=== PATIENT | female | born 1980 | race Caucasian/White ===

== ENCOUNTER 2020-08-01 14:45 | Emergency (ER) | payer OTHER, SELFPAY ==
[2020-08-01 14:50] VITALS: BP 99/72; PULSE 103; RESP 16; TEMP 36.9; O2SAT 100
--- NOTE | 2020-08-01 14:54 | ED.GENADULT ---
HPI - General Adult General Stated complaint: thinks she has staph Time Seen by Provider: 08/01/20 14:54 Source: patient Mode of arrival: ambulatory Limitations: no limitations History of Present Illness HPI narrative: 38-year-old female patient presents to the [facility] with complaints of a wound to her right groin for the past 2 days. Patient states she did pop it yesterday and states that she did have some discharge and was continuing to drain this morning. Patient states no active drainage at this time. Denies any fevers but states she has had some chills and some nausea recently as well. Patient does shave the groin area. Patient denies any that she is aware of. Related Data Home Medications Medication Instructions Recorded Confirmed divalproex 500 mg PO DAILY 09/19/19 08/01/20 medroxyprogesterone See Rx Instructions .ROUTE .COMPLEX 09/19/19 08/01/20 oxcarbazepine 300 mg PO DAILY 09/19/19 08/01/20 tizanidine 4 mg PO DAILY 09/19/19 08/01/20 Allergies Allergy/AdvReac Type Severity Reaction Status Date / Time carisoprodol Allergy Mild HIVES Verified 08/01/20 15:03 eszopiclone Allergy Unknown HEART Verified 08/01/20 15:03 RACING paliperidone Allergy Unknown HEART Verified 08/01/20 15:03 ISSUES pregabalin Allergy Unknown TONGUE Verified 08/01/20 15:03 SWELLING amitriptyline AdvReac Unknown NIGHTMARES Verified 08/01/20 15:03 nitrofurantoin AdvReac Unknown NAUSEA, Verified 08/01/20 15:03 INCOHERENT Review of Systems Review of Systems: Narrative: CONSTITUTIONAL: Denies fever, chills, or sweats. EYES: Denies visual changes, redness, or discharge. ENT: Denies rhinorrhea, congestion, sore throat, or otalgia. CARDIOVASCULAR: Denies chest pain, palpitations, or edema. RESPIRATORY: Denies cough or dyspnea. GASTROINTESTINAL: Denies abdominal pain, nausea, vomiting, or diarrhea. GENITOURINARY: Denies dysuria or hematuria. SKIN: Denies rash or itching. Positive wound to the right groin x2 to 3 days MUSCULOSKELETAL: Denies back pain, joint pain, or myalgia. NEUROLOGIC: Denies headache, numbness, or weakness. PSYCHIATRIC: Denies anxiety or depression. [facility] Past Medical History Medical History Anxiety Arthritis Back injury Bipolar disorder DDD (degenerative disc disease) Depression Fibromyalgia GERD (gastroesophageal reflux disease) Hepatitis C Kidney stone PTSD (post-traumatic stress disorder) Schizophrenia Seasonal allergies Seizures Tinnitus UTI (urinary tract infection) Wears glasses Surgical History Surgical History H/O carpal tunnel repair H/O dilation and curettage Social History Social History Tobacco type: e-cigarettes/vaping Alcohol intake: never Comments At the time of my signature I agree with nursing past medical history, surgical, social, and family history. There is no relevant family history pertinent to the presenting complaint. Exam Narrative: Exam Narrative: GENERAL: Well-appearing, well-nourished, and in no acute distress. HEAD: Normocephalic, atraumatic. EYES: PERRLA and EOMI. ENT: Nares clear, no rhinorrhea or epistaxis. Mucous membranes moist. NECK: Supple. No lymphadenopathy CHEST: Clear to auscultation. No respiratory distress. HEART: Regular rate and rhythm. No murmur heard. Normal peripheral pulses. ABDOMEN: Soft, nontender, nondistended, normal active bowel sounds. EXTREMITIES: Normal range of motion. No edema. SKIN: Warm, dry, no rash. Patient has approximately 1 cm x 1 cm raised infected ingrown hair noted to the right groin area. There is some redness, no active drainage. No warmth present. NEURO: No focal deficits. Alert and oriented x3. Course Vital Signs Vital signs: Vital Signs Temperature 36.9 C 08/01/20 14:50 Pulse Rate 103 H 08/01/20 14:50 Respiratory Rate 1
== END 2020-08-01 15:15 | disposition home or self-care (01) ==
PROVIDERS: Emergency Provider Nurse Practitioner Family
DX: S31.103A Unspecified open wound of abdominal wall, right lower quadrant without penetration into peritoneal cavity, initial encounter (principal); X58.XXXA Exposure to other specified factors, initial encounter; F17.200 Nicotine dependence, unspecified, uncomplicated; M19.90 Unspecified osteoarthritis, unspecified site; M79.7 Fibromyalgia; K21.9 Gastro-esophageal reflux disease without esophagitis; Z86.19 Personal history of other infectious and parasitic diseases
CPT/HCPCS: 81025; 99213; G0463

== ENCOUNTER 2020-12-13 13:47 | Emergency (ER) | payer OTHER, SELFPAY ==
[2020-12-13 14:08] VITALS: BP 111/69; PULSE 87; RESP 20; TEMP 36.4; O2SAT 100
--- NOTE | 2020-12-13 14:38 | ED.SKABFB ---
HPI - Skin/Abscess/Foreign Bdy General Chief complaint: SURFACE MINER Stated complaint: Rash Source: patient Mode of arrival: ambulatory Limitations: no limitations History of Present Illness HPI narrative: Patient is a 40-year-old female who presents complaining of rash to pelvic area x3 to 4 days. She reports pimples with yellow fluid. She reports recently shaving pubic area. She denies pain. She denies new sexual partners. She denies all other complaints at this time. MD complaint: rash Related Data Home Medications Medication Instructions Recorded Confirmed divalproex 500 mg PO DAILY 09/19/19 12/13/20 medroxyprogesterone See Rx Instructions .ROUTE .COMPLEX 09/19/19 12/13/20 oxcarbazepine 300 mg PO DAILY 09/19/19 12/13/20 Allergies Allergy/AdvReac Type Severity Reaction Status Date / Time carisoprodol Allergy Mild HIVES Verified 12/13/20 14:07 eszopiclone Allergy Unknown HEART Verified 12/13/20 14:07 RACING paliperidone Allergy Unknown HEART Verified 12/13/20 14:07 ISSUES pregabalin Allergy Unknown TONGUE Verified 12/13/20 14:07 SWELLING amitriptyline AdvReac Unknown NIGHTMARES Verified 12/13/20 14:07 nitrofurantoin AdvReac Unknown NAUSEA, Verified 12/13/20 14:07 INCOHERENT Review of Systems Review of Systems: Narrative: CONSTITUTIONAL: Denies fever, chills, or sweats. EYES: Denies visual changes, redness, or discharge. ENT: Denies rhinorrhea, congestion, sore throat, or otalgia. CARDIOVASCULAR: Denies chest pain, palpitations, or edema. RESPIRATORY: Denies cough or dyspnea. GASTROINTESTINAL: Denies abdominal pain, nausea, vomiting, or diarrhea. GENITOURINARY: Denies dysuria or hematuria. SKIN: Rash to pelvic area MUSCULOSKELETAL: Denies back pain, joint pain, or myalgia. NEUROLOGIC: Denies headache, numbness, dizziness, or weakness. PSYCHIATRIC: Denies anxiety or depression. [facility] Past Medical History Medical History Anxiety Arthritis Back injury Bipolar disorder DDD (degenerative disc disease) Depression Fibromyalgia GERD (gastroesophageal reflux disease) Hepatitis C Kidney stone PTSD (post-traumatic stress disorder) Schizophrenia Seasonal allergies Seizures Tinnitus UTI (urinary tract infection) Wears glasses Surgical History Surgical History H/O carpal tunnel repair H/O dilation and curettage Social History Social History Tobacco type: e-cigarettes/vaping Alcohol intake: never Comments At the time of signature, I have reviewed and agree with nursing past medical, surgical, social, and family history unless otherwise noted. Please see nursing chart for further information. There is no relevant family history pertinent to the presenting complaint. Exam Narrative: Exam Narrative: GENERAL: Well-appearing, well-nourished, and in no acute distress. HEAD: Normocephalic, atraumatic. EYES: EOMI. No redness or drainage. Conjunctiva are normal. ENT: Mucous membranes pink and moist. CHEST: No respiratory distress. HEART: Regular rate and rhythm. EXTREMITIES: Normal range of motion. SKIN: Multiple small pustules to the mons pubis and very stages of healing. NEURO: No focal deficits. Alert and oriented x3. Gait steady. PSYCH: Normal affect. No signs of depression or anxiety. Course Vital Signs Vital signs: Vital Signs Temperature 36.4 C 12/13/20 14:08 Pulse Rate 87 12/13/20 14:08 Respiratory Rate 12/13/20 14:08 Blood Pressure 111/69 12/13/20 14:08 Pulse Oximetry 100 12/13/20 14:08 Temperature 36.4 C 12/13/20 14:08 Pulse Rate 87 12/13/20 14:08 Respiratory Rate 12/13/20 14:08 Blood Pressure 111/69 12/13/20 14:08 Pulse Oximetry 100 12/13/20 14:08 Reviewed MDM - Skin/Abscess/Foreign Bdy MDM Narrative Medical decision making narrative: Patient most likely has mi
== END 2020-12-13 14:36 | disposition home or self-care (01) ==
PROVIDERS: Emergency Provider Nurse Practitioner
DX: L73.9 Follicular disorder, unspecified (principal); M19.90 Unspecified osteoarthritis, unspecified site; M79.7 Fibromyalgia; K21.9 Gastro-esophageal reflux disease without esophagitis; Z86.19 Personal history of other infectious and parasitic diseases; G40.909 Epilepsy, unspecified, not intractable, without status epilepticus
CPT/HCPCS: 87661; 99213; G0463

== ENCOUNTER 2021-11-04 10:24 | Emergency (ER) | payer OTHER, SELFPAY ==
[2021-11-04 10:30] VITALS: BP 96/64; PULSE 105; RESP 14; TEMP 37.1; O2SAT 98
[2021-11-04 10:48] VITALS: BP 96/64; PULSE 105; RESP 14; TEMP 37.1; O2SAT 98
--- NOTE | 2021-11-04 11:19 | ED.GENADULT ---
HPI - General Adult General Chief complaint: Upper Respiratory Infection Stated complaint: Sore throat Time Seen by Provider: 11/04/21 11:19 Source: patient Mode of arrival: ambulatory Limitations: no limitations History of Present Illness HPI narrative: 41-year-old female patient presents to the [facility] with complaints of sore throat, subjective fever, nasal congestion and runny nose that started yesterday. Patient is not vaccinated against COVID-19. Patient states she thinks she might have strep. Denies taking any medications for her symptoms. Related Data Home Medications Medication Instructions Recorded Confirmed cariprazine [Vraylar] 3 mg PO DAILY 11/04/21 11/04/21 oxcarbazepine 300 mg PO DAILY 11/04/21 11/04/21 prazosin 1 mg PO DAILY 11/04/21 11/04/21 Allergies Allergy/AdvReac Type Severity Reaction Status Date / Time carisoprodol Allergy Mild HIVES Verified 11/04/21 10:29 eszopiclone Allergy Unknown HEART Verified 11/04/21 10:29 RACING paliperidone Allergy Unknown HEART Verified 11/04/21 10:29 ISSUES pregabalin Allergy Unknown TONGUE Verified 11/04/21 10:29 SWELLING amitriptyline AdvReac Unknown NIGHTMARES Verified 11/04/21 10:29 nitrofurantoin AdvReac Unknown NAUSEA, Verified 11/04/21 10:29 INCOHERENT Review of Systems Review of Systems: CONSTITUTIONAL: Denies fever, chills, or sweats. EYES: Denies visual changes, redness, or discharge. ENT: Positive rhinorrhea, congestion, positive sore throat, denies otalgia. CARDIOVASCULAR: Denies chest pain, palpitations, or edema. RESPIRATORY: Denies cough or dyspnea. GASTROINTESTINAL: Denies abdominal pain, nausea, vomiting, or diarrhea. GENITOURINARY: Denies dysuria or hematuria. SKIN: Denies rash or itching. MUSCULOSKELETAL: Denies back pain, joint pain, or myalgia. NEUROLOGIC: Denies headache, numbness, or weakness. PSYCHIATRIC: Denies anxiety or depression. [facility] Past Medical History Medical History Anxiety Arthritis Back injury Bipolar disorder DDD (degenerative disc disease) Depression Fibromyalgia GERD (gastroesophageal reflux disease) Hepatitis C Kidney stone PTSD (post-traumatic stress disorder) Schizophrenia Seasonal allergies Seizures Tinnitus UTI (urinary tract infection) Wears glasses Surgical History Surgical History H/O carpal tunnel repair H/O dilation and curettage Social History Social History Tobacco type: e-cigarettes/vaping Alcohol intake: never Comments At the time of my signature I agree with nursing past medical history, surgical, social, and family history. There is no relevant family history pertinent to the presenting complaint. Exam Narrative: GENERAL: ill-appearing, well-nourished, and in no acute distress. HEAD: Normocephalic, atraumatic. EYES: PERRLA and EOMI. ENT: Nares c with erythema and edema noted bilaterally with rhinorrhea noted to right nostril, no epistaxis. Mucous membranes moist. Posterior pharynx with no erythema, tonsil enlargement, exudates or lesions present. Bilateral TMs are clear with no erythema or foreign bodies in the canal. NECK: Supple. No lymphadenopathy CHEST: Clear to auscultation. No respiratory distress. HEART: Regular rate and rhythm. No murmur heard. Normal peripheral pulses. ABDOMEN: Soft, nontender, nondistended, normal active bowel sounds. EXTREMITIES: Normal range of motion. No edema. SKIN: Warm, dry, no rash. NEURO: No focal deficits. Alert and oriented x3. Course Course Level of Care: Express Care Visit Vital Signs Vital signs: Vital Signs Temperature 37.1 C 11/04/21 10:30 Pulse Rate 105 H 11/04/21 10:30 Respiratory Rate 14 11/04/21 10:30 Blood Pressure 96/64 L 11/04/21 10:30 Pulse Oximetry 98 11/04/21 10:30 Temperature 37.1 C 11/04/21 10:48 Pulse Rate 105
[2021-11-05 15:55] LABS: SARS-CoV-2 RNA PCR Negative
== END 2021-11-04 11:47 | disposition home or self-care (01) ==
PROVIDERS: Emergency Provider Nurse Practitioner Family
DX: J02.0 Streptococcal pharyngitis (principal); Z20.822 Contact with and (suspected) exposure to COVID-19; M79.7 Fibromyalgia; K21.9 Gastro-esophageal reflux disease without esophagitis; G40.909 Epilepsy, unspecified, not intractable, without status epilepticus; F31.9 Bipolar disorder, unspecified
CPT/HCPCS: 87081; 87147; 87880; 99213; C9803; G0463; U0003; U0005

== ENCOUNTER 2021-12-21 15:27 | Emergency (ER) | payer OTHER, SELFPAY ==
--- NOTE | 2021-12-21 15:30 | ED.URI ---
HPI - URI/Sore Throat General Chief Complaint: Upper Respiratory Infection Stated Complaint: Sore Throat/Vomiting Time Seen by Provider: 12/21/21 15:34 Source: patient and RN notes reviewed History of Present Illness HPI Narrative: Patient is a 41-year-old female presents the urgent care with complaints of sore throat, nausea and vomiting. Patient states that it started Saturday night and she has been taking ibuprofen, Mucinex and Chloraseptic. Patient states that she was on amoxicillin last month for strep. States that she has had a positive contact with her grandchildren who are currently taking antibiotics for strep throat. No other acute complaints. No acute distress noted. Patient aware of the plan of care. Some parts of this dictation were generated by voice recognition software and may contain typographical and/or grammatical inaccuracies. Related Data Home Medications Medication Instructions Recorded Confirmed cariprazine [Vraylar] 3 mg PO DAILY 11/04/21 12/21/21 oxcarbazepine 300 mg PO DAILY 11/04/21 12/21/21 prazosin 1 mg PO DAILY 11/04/21 12/21/21 Allergies Allergy/AdvReac Type Severity Reaction Status Date / Time carisoprodol Allergy Mild HIVES Verified 12/21/21 15:38 eszopiclone Allergy Unknown HEART Verified 12/21/21 15:38 RACING paliperidone Allergy Unknown HEART Verified 12/21/21 15:38 ISSUES pregabalin Allergy Unknown TONGUE Verified 12/21/21 15:38 SWELLING amitriptyline AdvReac Unknown NIGHTMARES Verified 12/21/21 15:38 nitrofurantoin AdvReac Unknown NAUSEA, Verified 12/21/21 15:38 INCOHERENT Review of Systems Review of Systems: CONSTITUTIONAL: Denies fever, chills, or sweats. EYES: Denies visual changes, redness, or discharge. ENT: Denies rhinorrhea, congestion, otalgia. Reports of sore throat CARDIOVASCULAR: Denies chest pain, palpitations, or edema. RESPIRATORY: Denies cough or dyspnea. GASTROINTESTINAL: Reports of nausea and vomiting without diarrhea or abdominal pain GENITOURINARY: Denies dysuria or hematuria. SKIN: Denies rash or itching. MUSCULOSKELETAL: Denies back pain, joint pain, or myalgia. NEUROLOGIC: Denies headache, numbness, or weakness. All other systems reviewed are negative, except as documented in HPI. [facility] Past Medical History Medical History Anxiety Arthritis Back injury Bipolar disorder DDD (degenerative disc disease) Depression Fibromyalgia GERD (gastroesophageal reflux disease) Hepatitis C Kidney stone PTSD (post-traumatic stress disorder) Schizophrenia Seasonal allergies Seizures Tinnitus UTI (urinary tract infection) Wears glasses Surgical History Surgical History H/O carpal tunnel repair H/O dilation and curettage Social History Social History Tobacco type: e-cigarettes/vaping Alcohol intake: never Comments At the time of my signature, I reviewed and agree with the nursing past medical, surgical, social, and family history. There is no relevant family history pertinent to the patient complaint. Exam Narrative: GENERAL: This is a well-nourished, well-developed patient. Appears fatigued HEAD: normocephalic, atraumatic. EYES: PERRL. Sclera clear/white. Vision is grossly intact. EARS: External ears normal, auditory canals clear and without drainage, TMs normal without perforation. Hearing grossly intact. NOSE: External nose normal with no obvious nasal discharge, nares without redness, no rhinorrhea. THROAT: Mucous membranes moist. Mild erythema noted to posterior pharynx with moderate postnasal drainage. NECK: Neck supple, non-tender without lymphadenopathy CARDIOVASCULAR: Regular rate and rhythm without murmurs, gallops, or rubs. RESPIRATORY: Clear to auscultation. Breath sounds equal bilaterally. No wheezes, rales, or rhonchi. GASTROINTESTINAL: Abdomen soft, non-t
[2021-12-21 15:32] VITALS: BP 105/77; PULSE 104; RESP 20; TEMP 36.6; O2SAT 100
== END 2021-12-21 15:58 | disposition home or self-care (01) ==
PROVIDERS: Emergency Provider Nurse Practitioner Family
DX: J02.0 Streptococcal pharyngitis (principal); M19.90 Unspecified osteoarthritis, unspecified site; M79.7 Fibromyalgia; K21.9 Gastro-esophageal reflux disease without esophagitis; F17.290 Nicotine dependence, other tobacco product, uncomplicated; F31.9 Bipolar disorder, unspecified; G40.909 Epilepsy, unspecified, not intractable, without status epilepticus
CPT/HCPCS: 87880; 99213; G0463